=== PATIENT | male | born 1975 | race Hispanic/Latino ===

== ENCOUNTER 2019-08-18 14:41 | Emergency (ER) | payer MEDICARE ==
[2019-08-18] MEDS ORDERED: ASPIRIN 81 MG TAB CHEW PO ONE (15:07)
--- NOTE | 2019-08-18 15:18 | Emergency Department Report ---
ED Psych HPI - General Chief Complaint: Chest Pain Stated Complaint: CP Time Seen by Provider: 08/18/19 15:07 Source: patient, EMS Mode of arrival: Stretcher - History of Present Illness Initial Comments: Patient is 44 years old male with history of bipolar disorder. Patient was recently admitted to [facility] inpatient for suicidal ideation however patient was discharged from [place] inpatient and now following an outpatient service. Patient informed [facility] that he is having chest pain and he asked for ambulance but stated that they did not call his ambulance and he went ahead and called by himself. Patient is saying that he is having chest pain started approximately half an hours ago described as sharp substernal comes and goes with no radiation. Patient stated that he still suicidal and if he leave this ER he would go ahead and kill himself by cutting his wrist. Patient stated that he had previous attempt before. Patient stated that he is having visual hallucination and is hearing voices sometimes. Patient denied homicidal ideation. MD Complaint: suicidal ideation, feels depressed Associated Psychiatric Symptoms: depression, suicidal ideation, racing thoughts, visual hallucinations History of same: Yes Associated Symptoms: denies other symptoms If Self Harm: has plan, self-inflicted trauma - Related Data Allergies Allergy/AdvReac Type Severity Reaction Status Date / Time aspirin Allergy Rash Verified 08/18/19 15:34 ibuprofen Allergy Rash Verified 08/18/19 15:34 latex Allergy Rash Verified 08/18/19 15:34 ED Review of Systems ROS: Stated complaint: CP Other details as noted in HPI Comment: All other systems reviewed and negative Constitutional: denies: chills, fever Respiratory: denies: cough, shortness of breath, SOB with exertion Cardiovascular: chest pain. denies: palpitations, dyspnea on exertion Gastrointestinal: denies: abdominal pain, nausea, vomiting, diarrhea, constipation, hematemesis, hematochezia Musculoskeletal: denies: back pain Neurological: denies: headache, weakness, numbness, paresthesias, confusion Psychiatric: anxiety, depression, auditory hallucinations, visual hallucinations, suicidal thoughts. denies: homicidal thoughts ED Past Medical Hx - Past Medical History Hx Asthma: Yes Additional medical history: high chol, bipolar, depression, anxiety - Surgical History Additional Surgical History: gallbladder removed - Social History Smoking Status: Current Every Day Smoker Substance Use Type: Alcohol, Cocaine, Heroin, Marijuana ED Physical Exam - General Limitations: No Limitations General appearance: alert, in no apparent distress - Head Head exam: Present: atraumatic, normocephalic, normal inspection - Eye Eye exam: Present: normal appearance, PERRL - ENT ENT exam: Present: normal exam, normal orophraynx, mucous membranes moist - Neck Neck exam: Present: normal inspection, full ROM. Absent: tenderness, meningismus, lymphadenopathy, thyromegaly - Respiratory Respiratory exam: Present: normal lung sounds bilaterally - Cardiovascular Cardiovascular Exam: Present: regular rate, normal rhythm, normal heart sounds - GI/Abdominal GI/Abdominal exam: Present: soft, normal bowel sounds. Absent: distended, tenderness, guarding, rebound, rigid, organomegaly, mass, bruit, pulsatile mass, hernia - Extremities Exam Extremities exam: Present: normal inspection, full ROM, normal capillary refill. Absent: tenderness, pedal edema, calf tenderness - Back Exam Back exam: Present: normal inspection, full ROM. Absent: CVA tenderness (R), CVA tenderness (L) - Neurological Exam Neurological exam: Present: alert, oriented X3, CN II-XII intact - Psychiatric Psychiatric exam: Present: agitated, anxious, suicidal ideation. Absent: homicidal ideation - Skin Skin exam: Present: warm, intact, normal color ED Course Vital Signs 08/18/19 08/18/19 08/18/19 14:57 16:42 18:16 Temperature 98.0 F 98.5 F Pulse Rate 79 70 71 Respiratory 20 15 18 Rate Blood Pressure 123/78 Blood Pressure 139/77 123/74 [Left] O2 Sat by Pulse 99 97 99 Oximetry 08/18/19 08/18/19 08/19/19 20:12 22:54 01:57 Temperature 98.6 F 98.6 F Pulse Rate 65 66 Respiratory 18 18 18 Rate Blood Pressure Blood Pressure 106/81 108/88 [Left] O2 Sat by Pulse 100 99 Oximetry 08/19/19 08:06 Temperature 98.3 F Pulse Rate 70 Respiratory 18 Rate Blood Pressure Blood Pressure 129/85 [Left] O2 Sat by Pulse 97 Oximetry ED Medical Decision Making - Lab Data Result diagrams: 08/18/19 15:13 08/18/19 15:13 - EKG Data -: EKG Interpreted by Co EKG shows normal: sinus rhythm Rate: normal - EKG Data Interpretation: no acute changes - Radiology Data Radiology results: report reviewed - Medical Decision Making Patient is 44 years old male with history of bipolar disorder. Patient was recently admitted to [facility] inpatient for suicidal ideation however patient was discharged from [facility] inpatient and now following an outpatient service. Patient informed [facility] that he is having chest pain and he asked for ambulance but stated that they did not call his ambulance and he went ahead and called by himself. Patient is saying that he is having chest pain started approximately half an hours ago described as sharp substernal comes and goes with no radiation. Patient stated that he still suicidal and if he leave this ER he would go ahead and kill himself by cutting his wrist. Patient stated that he had previous attempt before. Patient stated that he is having visual hallucination and is hearing voices sometimes. Patient denied homicidal ideation. EKG is unremarkable. Labs reviewed and is negative for acute finding occluding a negative troponin. Chest x-ray is unremarkable. Patient is medically cleared to be evaluated by psychiatric team. Critical care attestation.: If time is entered above; I have spent that time in minutes in the direct care of this critically ill patient, excluding procedure time. ED Disposition Clinical Impression: Suicidal ideation, Chest pain Disposition: [id number] PSY HOSP/PSY UNIT Is pt being admited?: No Condition: Stable Instructions: Chest Pain (ED) Referrals: PRIMARY CARE [Primary Care Provider] - 3-5 Days
--- NOTE | 2019-08-18 15:49 | XRay Report ---
CHEST 1 VIEW INDICATION / CLINICAL INFORMATION: Chest Pain. COMPARISON: None available. FINDINGS: SUPPORT DEVICES: None. HEART / MEDIASTINUM: No significant abnormality. LUNGS / PLEURA: No significant pulmonary or pleural abnormality. No pneumothorax. ADDITIONAL FINDINGS: No significant additional findings. IMPRESSION: No acute pulmonary or pleural abnormality Signer Name: Trevor Carbone MD FACR Signed: 08/18/2019 3:45 PM Workstation Name: [id number]
[2019-08-18 15:54] LABS: BUN/Creatinine Ratio 21; Basophils % (Auto) 0.8 % (0.0-1.8); Blood Urea Nitrogen 19 mg/dL (9-20); Calcium 9.6 mg/dL (8.4-10.2); Eosinophils # (Auto) 0.1 K/mm3 (0.0-0.4); Eosinophils % (Auto) 1.7 % (0.0-4.3); Hematocrit 41.9 % (35.5-45.6); Hemoglobin 13.8 gm/dl (11.8-15.2); Hemolysis Index 11; Lymphocytes # (Auto) 1.9 K/mm3 (1.2-5.4); Lymphocytes % (Auto) 32.6 % (13.4-35.0); Mean Corpuscular HGB Conc 33 % (32-34); Mean Corpuscular Volume 86 fl (84-94); Monocytes # (Auto) 0.5 K/mm3 (0.0-0.8); Monocytes % (Auto) 8.8 % (0.0-7.3); Platelet Count 220 K/mm3 (140-440); Red Blood Count 4.86 M/mm3 (3.65-5.03); Red Cell Distribution Width 15.5 % (13.2-15.2)
[2019-08-18 19:10] LABS: Bilirubin,Urine NEG (Negative); Blood,Urine NEG (Negative); Color,Urine Yellow (Yellow); Mucus,Urine FEW /HPF; Protein,Urine <15 mg/dL mg/dL (Negative); RBC,Urine < 1.0 /HPF (0.0-6.0); Urobilinogen,Urine < 2.0 mg/dL (<2.0)
[2019-08-18 19:18] LABS: Amphetamine Screen,Urine PRESUMPTIVE NEGATIVE; Benzodiazepines Screen,Urine PRESUMPTIVE NEGATIVE; Cannabinoid Screen,Urine PRESUMPTIVE NEGATIVE; Cocaine Screen,Urine PRESUMPTIVE NEGATIVE; Methadone Screen,Urine PRESUMPTIVE NEGATIVE; Opiate Screen,Urine PRESUMPTIVE NEGATIVE
[2019-08-19 08:07] VITALS: BP 129/85
== END 2019-08-19 12:57 ==
LOC: ED 14:41 → EEVIPCON 14:41 → ED 08-19 12:57
DX: R45.851 Suicidal ideations (principal); R44.1 Visual hallucinations; R44.0 Auditory hallucinations; R07.89 Other chest pain; J45.909 Unspecified asthma, uncomplicated; E78.00 Pure hypercholesterolemia, unspecified; F31.9 Bipolar disorder, unspecified; F17.200 Nicotine dependence, unspecified, uncomplicated; F12.10 Cannabis abuse, uncomplicated; F14.10 Cocaine abuse, uncomplicated; F15.10 Other stimulant abuse, uncomplicated; Z88.6 Allergy status to analgesic agent; Z91.040 Latex allergy status
CPT/HCPCS: 36415; 71045; 80048; 80307; 80320; 81001; 84484; 85025; 93005; G0480